=== PATIENT | female | born 2000 | race Caucasian/White ===

== ENCOUNTER 2020-11-30 12:47 | Emergency (ER) | payer SELFPAY ==
[2020-11-30 12:52] VITALS: BP 128/77; PULSE 61; RESP 20; TEMP 36.7; O2SAT 100
--- NOTE | 2020-11-30 13:00 | DI.US_ITS ---
Exam(s) US ABDOMEN LIMITED EXAM: US ABDOMEN LIMITED CLINICAL HISTORY: ruq pressure, vomiting TECHNIQUE: Ultrasound abdomen performed using standard protocol. COMPARISON: No exams were available for comparison FINDINGS: LIVER: Normal size and echogenicity. No focal liver lesions are seen.. GALLBLADDER: No evidence of cholelithiasis. No evidence of wall thickening. No pericholecystic fluid identified. ZARATE'S SIGN: Negative. BILIARY SYSTEM: No intrahepatic or extrahepatic biliary ductal dilation. RIGHT KIDNEY: Normal size. No evidence of renal calculi. No evidence of hydronephrosis. No renal mass or cyst identified. PANCREAS: Normal where visualized. ABDOMINAL AORTA AND IVC: Visualized portions normal caliber. ASCITES: None seen. IMPRESSION: Normal sonographic appearance of the upper abdomen. DATA REPOSITORY:
--- NOTE | 2020-11-30 13:04 | ED.GENADUL_ITS ---
Discharge Plan Disposition Patient Disposition: HOME Condition: Good Discharge Details Clinical Impression: Nausea & vomiting Primary Care Provider: Brady Duncan ED Provider: Roxane Miles Home Meds and New Rx's Prescriptions: New ondansetron HCl [Zofran] 4 mg tablet 4 mg PO Q8H PRNQty: 7 RF: 0 potassium chloride 20 mEq tablet extended release 20 meq PO DAILY Qty: 7 RF: 0 Discharge Instructions Instructions: Acute Nausea and Vomiting (ED) Additional Instructions: You are leaving prior to improvement of your symptoms, I recommend staying for additional medication, however you prefer to be discharged home, I have supplied you with Zofran, please take this medication as needed for nausea and vomiting Return earlier should you have persistent vomiting, fever, chills, or with any new or progressing symptoms Please follow-up with your primary care physician and continue to abstain from marijuana use take potassium as prescribed Discharge Data Discharge Date/Time-TO BE ENTERED AT DEPARTURE: 11/30/20 14:55 Medical Decision Making Patient is alert, oriented, of decisional capacity, her diagnostic labs do not show acute abnormality aside from mild hypokalemia, this was supplemented She is able to tolerate p.o. at time of discharge home although she did have one episode of emesis and requested discharge home, recommended additional antiemetics and IV fluid hydration, patient is declining She will follow up with her primary care physician She has a nontender abdominal exam Has not had a month for patient Negative No evidence of acute cholecystitis or biliary abnormalities from labs Discharge home, alert, recheck in the past Differential Diagnosis Differential Diagnosis: Gastroenteritis, cholecystitis, , cannabinoid hyperemesis syndrome Medical Records Medical records reviewed: Yes I reviewed the patient's medical records. Lab Data Lab results reviewed: Yes I reviewed the patient's lab results. HPI General Mode of arrival: ambulatory . Date/Time Provider Initiated Documentation: 11/30/20 12:57 . Limitations to Documentation: no limitations . Information obtained by: patient . HPI Narrative: This 20-year-old female presents with nausea, vomiting which started abruptly at 7 AM this morning. She states she was able to eat dinner last night. She had 5 episodes similar to this in the past several months. Initially she was smoking marijuana and discontinued smoking 3 months ago in an attempt to alleviate her symptoms. She states despite cessation from marijuana she has had per current nausea and vomiting. She denies any chest pain or shortness of breath. She has pressure in her right upper abdomen. She denies any chest discomfort or shortness of breath. She denies any known spoiled food exposure. She denies any known sick contacts. Denies any chance of . Denies alcohol consumption. Related Data Home Medications Medication Instructions Recorded Confirmed ondansetron HCl [Zofran] 4 mg PO Q8H PRN #7 tab 11/30/20 potassium chloride 20 meq PO DAILY #7 tab 11/30/20 Previous Rx's Medication Instructions Recorded ondansetron HCl [Zofran] 4 mg PO Q8H PRN #7 tab 11/30/20 potassium chloride 20 meq PO DAILY #7 tab 11/30/20 Allergies Allergy/AdvReac Type Severity Reaction Status Date / Time nickel Allergy rash Unverified 11/30/20 12:55 General Stated Complaint: Nausea/Vomit/Diar KEYUR: 3 Review of Systems Narrative: Review of systems obtained x7 aside from where indicated in HPI [facility] Medical History (Updated 11/30/20 @ 14:54 by NIKKI Martinez) Right ACL tear surgical repair Surgical History Repair, ACL right--12/2015 Family History Mother Healthy adult Mental disorder anxiety/depression Father No problems noted. Other Diabetes PGF Heart disease MGF Social History Smoking/Tobacco Use Status: Never Smoking risk assessment performed?: Yes Alcohol Intake: never Drug use: Occasionally Substance use type: marijuana Do you feel safe at home: Yes Exam Const General: cooperative Orientation: alert and oriented x3 HENMT Other: moist mucous membranes Eyes Pupils: PERRL Resp Effort & Inspection: normal respiratory effort Cardio Rate: regular rate Rhythm: regular rhythm GI Other: Mild right upper quadrant tenderness on exam No CVA tenderness Skin Other: pale Neuro General: patient alert and patient oriented x3 Course Vital Signs Vital signs: Vital Signs Temperature 36.7 C 11/30/20 12:52 Pulse 61 11/30/20 12:52 Respiratory Rate 20 11/30/20 12:52 Blood Pressure 128/77 11/30/20 12:52 Pulse Oximetry 100 11/30/20 12:52 Temperature 36.7 C 11/30/20 12:52 Temperature Source Skin 11/30/20 12:52 Pulse 61 11/30/20 12:52 Respiratory Rate 20 11/30/20 12:52 Respiratory Effort Non-Labored 11/30/20 12:56 Blood Pressure 128/77 11/30/20 12:52 Blood Pressure Position Sitting 11/30/20 12:52 Pulse Oximetry 100 11/30/20 12:52 Oxygen Delivery Method Room Air 11/30/20 12:52 Oxygen Flow Rate 0 11/30/20 12:52 Pain Level 7 11/30/20 12:52 Comment 11/30/20 12:52
[2020-11-30] MEDS: Ondansetron 4 MG/2 ML VIAL IVP ×2 (13:18→14:53)
[2020-11-30] MEDS: Normal Saline 1,000 ML 1000 ML IV (13:18)
[2020-11-30 13:26] LABS: Bilirubin Negative (Negative); Blood Moderate (Negative); Clarity Clear (Clear); Glucose Negative (Negative); Ketones 40 mg/dL (Negative); Leukocyte Esterase Negative (Negative); Nitrite Negative (Negative); pH 8.5 (5-8)
[2020-11-30 13:28] LABS: Abs Immature Grans 0.02 10^3/uL (0.0-0.06); Absolute Basophil Count 0.03 10^3/uL (0.0-0.2); Absolute Eosinophil Count 0.01 10^3/uL (0.0-0.7); Absolute Monocyte Count 0.16 10^3/uL (0.1-0.8); Absolute Neutrophil Count 7.43 10^3/uL (1.2-6.7); Basophils % 0.3; Eosinophils % 0.1; HCT 39.7 % (36.0-46.0); HGB 13.8 g/dL (11.2-15.7); Immature Grans % 0.2; Lymphocytes % 13.6; MCH 31.4 pg (27.0-33.0); MCHC 34.8 % (32.0-36.0); MCV 90.4 fL (80-95); MPV 9.4 fL (8.0-11.0); Monocytes % 1.8; Nucleated RBC 0 %; Platelet Count 351 10^3/uL (130-400); RBC 4.39 10^6/uL (3.93-5.22); RDW 11.5 % (11.7-14.6); RDW-SD 38.2 fL; WBC 8.85 10^3/uL (4.4-10.8)
[2020-11-30 13:38] LABS: Bacteria Moderate HPF (Negative); C & S Indicated? No/Sq. Contamination; Casts Negative LPF (Negative); Crystals Negative HPF (Negative); Epithelial Cells Many HPF (Negative); Mucus Moderate (Negative); WBC 20-50 HPF (0-5)
[2020-11-30 13:44] LABS: ALT 23 U/L (14-59); AST 16 U/L (15-37); Albumin 4.6 g/dL (3.4-5.0); Alkaline Phosphatase 67 U/L (46-116); Anion Gap 10.6 mmol/L (3-11); BUN 5 mg/dL (7-18); Bilirubin, Total 0.7 mg/dL (0.2-1.0); CO2 25.4 mmol/L (21.0-32.0); CREATININE 0.9 mg/dL (0.55-1.02); Calcium 9.6 mg/dL (8.5-10.1); Chloride 107 mmol/L (98-107); Glucose 132 mg/dL (74-106); Lipase 62 U/L (73-393); Magnesium 2.1 mg/dL (1.8-2.4); Potassium 3.3 mmol/L (3.5-5.1); Sodium 143 mmol/L (136-145); Total Protein 8.3 g/dL (6.4-8.2)
[2020-11-30 14:59] VITALS: PULSE 79; RESP 16; TEMP 36.8; O2SAT 98
== END 2020-11-30 14:55 | disposition home or self-care (01) ==
PROVIDERS: Emergency Provider Physician Assistant; PCP Pediatrics
DX: R11.2 Nausea with vomiting, unspecified (principal)
CPT/HCPCS: 36415; 80053; 83690; 96361; 96374; 96376; 99284; 76705; 81003; 81015; 83735; 84703; 85025; 99283; J2405